=== PATIENT | female | born 1970 | race Caucasian/White ===

== ENCOUNTER 2017-08-08 | Day surgery (SDC) | END 2017-08-08 11:35 | disposition home or self-care (01) ==

== ENCOUNTER → 2018-03-11 | Outpatient (CLI) | payer OTHER ==
[~2018-03-11] MED LIST: ALBU8HFA2 INH; ALBU90OI; ALBU90OI INH; ALPR.5; ANTIINFLAMMATORY; AZIT250 PO; AZIT500 PO; BELPHEELB PO; BENZ100A PO; BUSP5; Bactrim Ds Tab1 EACH PO; CARI350 PO; CEPH500 PO; CHOL10002 PO; CLON.1; CYAN1000 PO; DIAZ10; DIAZ10 PO; DICL25ER; DICL25ER PO; DIPH50; DIPH50 PO; EFFEXOR; FENO54; FURO40; HYDACE10B PO; HYDACE5; HYDACE5 PO; HYDGUAL120 PO; HYDHCL25 PO; HYDMOR4 PO; IBUP600 PO; IBUP800 PO; LORA.5 PO; LORA1 PO; MAGOXI400 PO; MEDICAL MARIJUANA; META800 PO; METH10 PO; METH40 PO; METR500 PO; MUSCLE RELAXER; NAPR220; NAPR220 PO; OMEP20ER PO; ONDA4 PO; ONDA8 PO; OXYACE10; OXYACE5T; OXYACE5T PO; OXYC15ER PO; OXYC1TAB11 PO; PENVK500 PO; PHENTERMINE; PHENTERMINE HCL; POTCHL10ER PO; PROG100 PO; PROM25 PO; PSEU120ER PO; PSEU30 PO; RANI150 PO; RXHYDGUAS PO; RXHYDMOR2 PO; RXLORA1 PO; RXOXYACE PO; RXSULTRIDS PO; RXTRAM50 PO; SEASONIQUE BCP PO; SOMA350 MG PO; SULTRIDS PO; TAMO10 PO; TRAACE PO; TRAZ100 PO; TRAZO; [UNRECOGNIZED DRUG - REMARK]
[2018-03-13 15:08] LABS: HPV 16 Negative (Negative); HPV 18 Negative (Negative); HPV OTHER HR TYPES Negative (Negative)
== END | disposition home or self-care (01) ==
LOC: LAB 19:13 → LAB SHORT 19:13
PROVIDERS: Obstetrics & Gynecology Gynecology
DX: Z12.4 Encounter for screening for malignant neoplasm of cervix (principal)
CPT/HCPCS: 87624; G0123

== ENCOUNTER 2018-09-15 12:43 | Day surgery (SDC) | payer OTHER ==
[~2018-09-15] VITALS: Ht 154.9 cm; Wt 102.7 kg
[~2018-09-15 12:43] MED LIST changes: +Diclofenac Sodi50 MG PO; +FURO20 PO; +Hygroton50 MG PO; +Nolvadex20 MG PO; +Percocet 5-3251 EACH PO; +Voltaren100 GM TOP
== END 2018-09-15 15:30 | disposition home or self-care (01) ==
LOC: ORSCSDS 12:43
PROVIDERS: Obstetrics & Gynecology Gynecology
PROC: 0UDB8ZX Extraction of Endometrium, Via Natural or Artificial Opening Endoscopic, Diagnostic (ICD-10-PCS; principal; 2018-09-15 14:00)
DX: N95.0 Postmenopausal bleeding (principal); R93.89 Abnormal findings on diagnostic imaging of other specified body structures; J45.909 Unspecified asthma, uncomplicated; G47.33 Obstructive sleep apnea (adult) (pediatric); Z87.891 Personal history of nicotine dependence; E66.01 Morbid (severe) obesity due to excess calories; Z68.41 Body mass index [BMI] 40.0-44.9, adult; F33.9 Major depressive disorder, recurrent, unspecified; Z79.899 Other long term (current) drug therapy
CPT/HCPCS: 88305; J0690; J1100; J1885; J2250; J2370; J2405; J2704; J3010

== ENCOUNTER → 2019-03-10 | Outpatient (CLI) | payer OTHER ==
[2019-03-10 17:43] LABS: BASOPHILS ABSOLUTE AUTO 0.08 K/mm3 (0.00-0.23); BASOPHILS PERCENT AUTO 1 % (0-2); EOSINOPHILS ABSOLUTE AUTO 0.12 K/mm3 (0.00-0.68); EOSINOPHILS PERCENT AUTO 2 % (0-6); Hematocrit 35.7 % (33.0-51.0); Hemoglobin 11.5 g/dL (11.5-16.0); IMMATURE GRAN ABSOLUTE AUTO 0.04 K/mm3 (0.00-0.10); IMMATURE GRAN PERCENT AUTO 1 % (0-1); LYMPHOCYTES ABSOLUTE AUTO 1.25 K/mm3 (0.84-5.20); LYMPHOCYTES PERCENT AUTO 16 % (21-46); MONOCYTES ABSOLUTE AUTO 0.63 K/mm3 (0.16-1.47); MONOCYTES PERCENT AUTO 8 % (4-13); Mean Corpuscular HGB 28.7 pg (26.0-34.0); Mean Corpuscular HGB Conc 32.2 g/dL (31.5-36.5); Mean Corpuscular Volume 89 fL (80-100); Mean Platelet Volume 10.5 fL (9.1-12.4); NEUTROPHILS ABSOLUTE AUTO 5.81 K/mm3 (1.96-9.15); NEUTROPHILS PERCENT AUTO 73 % (41-73); Platelet Count 433 K/mm3 (150-400); RDW Coefficient Variation 15.6 % (11.7-14.2); RDW Standard Deviation 50.6 fL (35.1-46.3); Red Blood Cell Count 4.01 M/mm3 (3.80-5.20); White Blood Cell Count 7.93 K/mm3 (4.00-11.30)
[2019-03-10 18:00] LABS: Alanine Aminotransfer (ALT/SGP 60 U/L (12-78); Albumin/Globulin Ratio 0.8 (0.8-1.8); Alk Phos 219 U/L (50-136); Anion Gap 7 mmol/L (6-16); Aspartate Aminotrans (AST/SGOT 35 U/L (12-37); Bilirubin, Total 0.4 mg/dL (0.1-1.0); Blood Urea Nitrogen 24 mg/dL (8-24); Bun/Creatinine Ratio 25.6 (12.0-20.0); CO2, Blood 27 mmol/L (21-32); Calcium, Blood 8.9 mg/dL (8.5-10.1); Chloride, Blood 105 mmol/L (98-108); Creatinine, Blood 0.94 mg/dL (0.40-1.00); Globulin, Blood 3.7 g/dL (2.2-4.0); Glomerular Filtration Rate >60 (60-); Glucose, Blood 104 mg/dL (70-99); Potassium, Blood 2.9 mmol/L (3.5-5.5); Sodium, Blood 139 mmol/L (136-145); Total Protein, Blood 6.7 g/dL (6.4-8.2)
== END | disposition home or self-care (01) ==
LOC: LAB SHORT 16:27 → LAB 16:27
PROVIDERS: Student in an Organized Health Care Education/Training Program
DX: I16.0 Hypertensive urgency (principal)
CPT/HCPCS: 80053; 83880; 85025; 85379

== ENCOUNTER 2019-05-19 06:10 | Day surgery (SDC) | payer OTHER ==
[~2019-05-19] VITALS: Ht 152.4 cm; Wt 93.0 kg
[~2019-05-19 06:10] MED LIST changes: +ASPI81CH PO; +LISI20 PO; +POTCHL20ER PO
--- NOTE | 2019-05-19 12:34 | NUR ---
PT TR BAND OFF, AREA CLEANSED SOFTLY. CLOTH DOT PLACED. PT INSTRUCTED ON WHAT TO DO SHOULD BLEEDING OCCUR. SON AND MOTHER BOTH VERBALIZE UNDERSTANDING OF INSTRUCTIONS. SALINE LOCK TAKEN OUT WITH CATHETER INTACT. FULL DISCHARGE GONE OVER WITH PT AND WITH FAMILY. ALL VERBALIZE UNDERSTANDING OF INSTRUCTIONS. PT DISCHARGED PER W/C WITH ONE STAFF.
== END 2019-05-19 12:30 | disposition home or self-care (01) ==
LOC: MHTC 06:10
PROC: 4A023N8 Measurement of Cardiac Sampling and Pressure, Bilateral, Percutaneous Approach (ICD-10-PCS; principal; 2019-05-19)
PROC: B2111ZZ Fluoroscopy of Multiple Coronary Arteries using Low Osmolar Contrast (ICD-10-PCS; principal; 2019-05-19)
DX: I27.20 Pulmonary hypertension, unspecified (principal); I10 Essential (primary) hypertension; I07.1 Rheumatic tricuspid insufficiency; E78.5 Hyperlipidemia, unspecified; J45.909 Unspecified asthma, uncomplicated; E66.2 Morbid (severe) obesity with alveolar hypoventilation; Z68.39 Body mass index [BMI] 39.0-39.9, adult; Z79.82 Long term (current) use of aspirin; Z79.1 Long term (current) use of non-steroidal anti-inflammatories (NSAID); Z79.899 Other long term (current) drug therapy; Z88.1 Allergy status to other antibiotic agents; Z87.891 Personal history of nicotine dependence
CPT/HCPCS: 93460; 99152; 99153; C1769; C1894; J1644; J2060; J2250; J3010; J7030; Q9967

== ENCOUNTER → 2019-05-28 | Outpatient (CLI) | payer OTHER ==
[2019-06-01 15:07] LABS: HPV 16 Positive (Negative); HPV 18 Negative (Negative); HPV OTHER HR TYPES Negative (Negative)
== END ==
LOC: LAB 14:08 → LAB SHORT 14:08
PROVIDERS: Obstetrics & Gynecology Gynecology
DX: Z12.4 Encounter for screening for malignant neoplasm of cervix (principal)
CPT/HCPCS: 87624; G0123

== ENCOUNTER 2020-11-09 21:03 | Emergency (ER) | payer OTHER ==
[~2020-11-09] VITALS: Ht 152.4 cm; Wt 96.6 kg
[2020-11-09] MEDS ORDERED: CYCL10 PO (23:04)
[2020-11-10] MEDS ORDERED: OXAYDO5 M1 PO (14:49)
== END 2020-11-09 23:16 | disposition home or self-care (01) ==
LOC: ER 21:03
DX: S83.92XA Sprain of unspecified site of left knee, initial encounter (principal); Z88.1 Allergy status to other antibiotic agents; Z79.82 Long term (current) use of aspirin; Z79.899 Other long term (current) drug therapy; Z87.891 Personal history of nicotine dependence; W01.0XXA Fall on same level from slipping, tripping and stumbling without subsequent striking against object, initial encounter
CPT/HCPCS: 29505; 73030; 73080; 73562-LT; 99283-25; A9270

== ENCOUNTER → 2021-02-13 | Outpatient (CLI) | payer OTHER ==
[~2021-02-13] MED LIST changes: +CYCL10 PO; +OXAYDO5 M1 PO
== END ==
LOC: LAB SHORT 07:27
DX: D48.5 Neoplasm of uncertain behavior of skin (principal)
CPT/HCPCS: 88305; 88342

== ENCOUNTER → 2021-03-01 | Outpatient (CLI) | payer OTHER | END | disposition home or self-care (01) | LOC: LAB 16:15 → LAB SHORT 16:15 | PROVIDERS: Internal Medicine Rheumatology | DX: M35.00 Sjogren syndrome, unspecified (principal) | CPT/HCPCS: 85651; 86038 ==

== ENCOUNTER 2022-03-15 02:06 | Day surgery (SDC) | payer OTHER ==
[2022-03-15] MEDS ORDERED: LEVOTHYROXINE13 MCG PO (15:36)
[2022-03-15] MEDS ORDERED: OPSUMIT10 MG PO (15:39)
== END 2022-03-15 16:47 | disposition home or self-care (01) ==
LOC: ATC 02:06
DX: D50.9 Iron deficiency anemia, unspecified (principal); C50.412 Malignant neoplasm of upper-outer quadrant of left female breast; Z17.0 Estrogen receptor positive status [ER+]
CPT/HCPCS: 36415; 36430; 86850; 86900; 86901; 86923; J7040; P9016

== ENCOUNTER → 2022-08-29 | Outpatient (CLI) | payer OTHER ==
[~2022-08-29] MED LIST changes: +LEVOTHYROXINE13 MCG PO; +OPSUMIT10 MG PO
== END | disposition home or self-care (01) ==
LOC: LAB 16:35 → LAB SHORT 16:35
DX: R35.0 Frequency of micturition (principal); R30.9 Painful micturition, unspecified
CPT/HCPCS: 87086

== ENCOUNTER → 2022-09-27 | Outpatient (CLI) | payer OTHER ==
[2022-09-27 18:12] LABS: Calcium, Blood 9.1 mg/dL (8.5-10.1); Creatinine, Blood 0.88 mg/dL (0.40-1.00); Potassium, Blood 3.4 mmol/L (3.5-5.5)
== END | disposition home or self-care (01) ==
LOC: LAB 16:24 → LAB SHORT 16:24
PROVIDERS: Internal Medicine
DX: G47.33 Obstructive sleep apnea (adult) (pediatric) (principal); I27.20 Pulmonary hypertension, unspecified
CPT/HCPCS: 36415; 80048